=== PATIENT | female | born 1960 | race Caucasian/White ===

== ENCOUNTER 2022-06-18 15:01 | Outpatient (CLI) | payer BC, MEDICARE | END 2022-06-18 15:02 | disposition home or self-care (01) | LOC: CSHCP 15:01 | PROVIDERS: ATTEND Internal Medicine | DX: G47.34 Idiopathic sleep related nonobstructive alveolar hypoventilation (principal); Z12.2 Encounter for screening for malignant neoplasm of respiratory organs; F17.210 Nicotine dependence, cigarettes, uncomplicated | CPT/HCPCS: 71271; 94618 ==

== ENCOUNTER 2025-06-06 08:49 | Outpatient (CLI) | payer BC, MEDICARE ==
[2025-06-06 10:23] LABS: Estimated GFR - POC 83.0
[2025-06-06] MEDS ORDERED: Iopamidol 300 61% 100 ML VIAL FS ONE (10:34)
== END 2025-06-06 08:50 | disposition home or self-care (01) ==
LOC: CSHCT 08:49
PROVIDERS: ATTEND Family Medicine
DX: R10.84 Generalized abdominal pain (principal); K44.9 Diaphragmatic hernia without obstruction or gangrene; R16.1 Splenomegaly, not elsewhere classified
CPT/HCPCS: 36415; 74170; 82565; Q9967